=== PATIENT | male | born 1935 | race Caucasian/White ===

== ENCOUNTER 2018-07-17 20:48 | Emergency (ER) | payer MEDICARE, BC ==
[~2018-07-17] VITALS: Ht 177.8 cm; Wt 90.7 kg
--- NOTE | 2018-07-17 20:52 | ED Abdominal Pain ---
General Stated Complaint: ABD PAIN Source of Information: Patient, Caregiver (daughter), EMS History of Present Illness Date Seen by Provider: Jul 17, 2018 Time Seen by Provider: 20:48 Initial Comments 82-year-old male presenting from [facility]. He has had rapidly increasing abdominal distention. He has had decreased bowel movements and decreased urinary output in the last 24 hours. This has been a new progression for him. He also has been having some increased shortness of breath and breathing faster. This has coincided with his abdominal distention. He does have a history of having heart failure that this is been well controlled recently. He has no complaints himself but does have dementia. The correction hasn't tried giving him an enema but he had minimal to no results with this. He has had no vomiting but has had poor appetite. Allergies and Home Medications Allergies Coded Allergies: Penicillins (Verified Allergy, Unknown, 07/17/18) Uncoded Allergies: STEROIDS (Allergy, Unknown, 07/17/18) Patient Home Medication List Home Medication List Reviewed: Yes Review of Systems Review of Systems Constitutional: No chills, No fever; malaise EENTM: No Symptoms Reported Respiratory: Shortness of Air (due to distended belly) Cardiovascular: No Symptoms Reported Gastrointestinal: Abdomen Distended; Denies Abdominal Pain; Constipated, Poor Appetite; Denies Vomiting Genitourinary: Other (poor urine output) Musculoskeletal: no symptoms reported Skin: no symptoms reported Psychiatric/Neurological: Other (chronic dementia) Past Ldczrif-Sihguv-Zbeyyq Hx Past Med/Social Hx: Reviewed Nursing Past Med/Soc Hx Patient Social History Recent Foreign Travel: No Contact w/Someone Who Travel: No Physical Exam Vital Signs Vital Signs - First Documented 07/17/18 07/17/18 20:59 23:45 Temp 96.8 Pulse 80 Resp 14 B/P (MAP) 97/51 (66) Pulse Ox 96 O2 Delivery Room Air Capillary Refill : Height/Weight/BMI Height: '" Weight: lbs. oz. kg; BMI Method: General Appearance: WD/WN HEENT: pharynx normal Neck: non-tender, supple Respiratory: chest non-tender, lungs clear, normal breath sounds; No rales, No rhonchi, No stridor; other (tachypnea) Cardiovascular: normal peripheral pulses, regular rate, rhythm Gastrointestinal: non tender, soft, no pulsatile mass, abnormal bowel sounds ( tympanic bowel sounds), distended Rectal: deferred (family requested that pt not have rectal exam performed) Extremities: normal range of motion, non-tender Neurologic/Psychiatric: alert, other (chronic dementia. Oriented to self and place as ) Skin: warm/dry, pallor Progress/Results/Core Measures Results/Orders Lab Results Laboratory Tests Test 07/17/18 20:50 Range/Units White Blood Count 19.2 H 4.3-11.0 10^3/uL Red Blood Count 3.68 L 4.35-5.85 10^6/uL Hemoglobin 11.7 L 13.3-17.7 G/DL Hematocrit 35 L 40-54 % Mean Corpuscular Volume 96 80-99 FL Mean Corpuscular Hemoglobin 32 25-34 PG Mean Corpuscular Hemoglobin Concent 33 32-36 G/DL Red Cell Distribution Width 14.4 10.0-14.5 % Platelet Count 372 130-400 10^3/uL Mean Platelet Volume 9.8 7.4-10.4 FL Neutrophils (%) (Auto) 86 H 42-75 % Lymphocytes (%) (Auto) 4 L 12-44 % Monocytes (%) (Auto) 9 0-12 % Eosinophils (%) (Auto) 0 0-10 % Basophils (%) (Auto) 0 0-10 % Neutrophils # (Auto) 16.5 H 1.8-7.8 X 10^3 Lymphocytes # (Auto) 0.8 L 1.0-4.0 X 10^3 Monocytes # (Auto) 1.6 H 0.0-1.0 X 10^3 Eosinophils # (Auto) 0.0 0.0-0.3 10^3/uL Basophils # (Auto) 0.0 0.0-0.1 10^3/uL Neutrophils % (Manual) 85 % Lymphocytes % (Manual) 1 % Monocytes % (Manual) 8 % Eosinophils % (Manual) 0 % Basophils % (Manual) 0 % Band Neutrophils 6 % Poikilocytosis SLIGHT Sodium Level 132 L 135-145 MMOL/L Potassium Level 4.0 3.6-5.0 MMOL/L Chloride Level 95 L 98-107 MMOL/L Carbon Dioxide Level 18 L 21-32 MMOL/L Anion Gap 19 H 5-14 MMOL/L Blood Urea Nitrogen 74 H 7-18 MG/DL Creatinine 3.12 H 0.60-1.30 MG/DL Estimat Glomerular Filtration Rate 19 BUN/Creatinine Ratio 24 Glucose Level 127 H 70-105 MG/DL Calcium Level 8.3 L 8.5-10.1 MG/DL Corrected Calcium 9.3 8.5-10.1 MG/DL Total Bilirubin 0.6 0.1-1.0 MG/DL Aspartate Amino Transf (AST/SGOT) 116 H 5-34 U/L Alanine Aminotransferase (ALT/SGPT) 143 H 0-55 U/L Alkaline Phosphatase 63 40-136 U/L Total Protein 6.2 L 6.4-8.2 GM/DL Albumin 2.8 L 3.2-4.5 GM/DL Lipase 14 8-78 U/L My Orders Orders - CARLOS HERNANDEZ MD Comprehensive Metabolic Panel (07/17/18 20:53) Lipase (07/17/18 20:53) Ua Culture If Indicated (07/17/18 20:53) Ed Iv/Invasive Line Start (07/17/18 20:53) Cbc With Automated Diff (07/17/18 20:53) Ct Abdomen/Pelvis Wo (07/17/18 20:53) Manual Differential (07/17/18 20:50) Vital Signs/I&O 07/17/18 07/17/18 20:59 23:45 Temp 96.8 Pulse 80 78 Resp 14 B/P (MAP) 97/51 (66) 89/44 (59) Pulse Ox 96 96 O2 Delivery Room Air Room Air 07/18/18 00:00 Intake Total 200 ml Balance 200 ml Progress Progress Note #1: Progress Note check labs and CT scan of abdomen and pelvis to evaluate for possible bowel obstruction or pathology to cause his tympanic bowel sounds and distended abdomen. Progress Note #2: Progress Note His daughter confirmed the patient is a DNR and when reviewing the test results that show he is in acute renal failure with worsening WBC count elevation, urinary retention, fecal impaction with bowel obstruction, inguinal hernia and radiology report of possible ischemic bowel, it was felt that it would be better to make him comfortable instead of putting him through a lot of interventions. This was also discussed with his primary Dr. Plunkett. The patient will be transferred back to [facility]. His bladder will be drained here to help relieve some of the urinary retention. However family did not want his rectal impaction to be disimpacted. Plan to have him go on Hospice care in the morning or as soon as a service can be found to admit him to Hospice. Diagnostic Imaging Diagonstic Imaging: CT Plain Films/CT/US/NM/MRI: abdomen, pelvis Comments NAME: [facility] REC#: [id number] PT STATUS: REG ER : 1935 PHYSICIAN: CARLOS HERNANDEZ MD ADMIT DATE: 07/17/18/ER FS Signed Date of Exam:07/17/18 CT ABDOMEN/PELVIS WO PROCEDURE: CT abdomen and pelvis without contrast. TECHNIQUE: Multiple contiguous axial images were obtained through the abdomen and pelvis without the use of intravenous contrast. Auto Exposure Controls were utilized during the CT exam to meet ALARA standards for radiation dose reduction. INDICATION: Increasing abdominal distention. COMPARISON: None available. FINDINGS: Absence of intravenous contrast decreases sensitivity for detection of lymphadenopathy, focal lesions and vascular pathology. Multiple images are degraded by patient motion which diminishes detail, and interpretation was made in light of this technical confine. Mild bibasilar atelectasis and/or scarring. Trace left pleural fluid. There is moderate cardiomegaly. Partially visualized pacemaker leads. The liver, spleen and adrenal glands are normal. Calcified gallstones layer dependently in the gallbladder. There is no gallbladder wall edema or pericholecystic fluid. No intrahepatic or extrahepatic biliary ductal dilatation is demonstrated. There is mild atrophy of the pancreas. No pancreatic ductal dilatation is demonstrated. The kidneys are atrophic. Bilateral renal cysts are demonstrated. An exophytic relatively hyperdense lesion projects laterally off of the interpolar region in the left kidney. No hydronephrosis or renal calculus on either side. The visualized ureters are normal. There is a left inguinal hernia which contains portions of the distal descending and proximal sigmoid colon. Proximal to the level of the hernia, there is marked gaseous distention of the colon. Mildly dilated fluid-filled loops of small bowel are demonstrated throughout the abdomen. A moderate amount of retained partially digested food products is demonstrated in the stomach. There is question of pneumatosis coli demonstrated in the region of the cecum/ascending colon. There is a moderate stool ball, which distends the rectum to over 7 cm in transverse diameter. There is suggestion of mild rectal wall thickening, with mild surrounding inflammatory change. The appendix is normal. No pneumoperitoneum, abdominal free fluid or loculated collection. There is marked calcified atherosclerotic plaque of the abdominal aorta, without aneurysmal dilatation. No lymphadenopathy is demonstrated. There is severe distention of the bladder, without focal bladder abnormality demonstrated. The prostate gland is not enlarged. Severe multilevel degenerative changes of the spine are demonstrated. There is retrolisthesis of L2 on L3 and L4 on L5, with mild anterolisthesis of L5 on S1. Advanced degenerative changes are noted in both hip joints. No acute osseous abnormality is identified. IMPRESSION: 1. Left inguinal hernia containing portions of the distal descending and proximal sigmoid colon. There is marked gaseous distention of colon proximal to the inguinal hernia and mildly dilated loops of fluid-filled small bowel noted throughout the abdomen. Findings are concerning for obstruction. 2. There is suggestion of pneumatosis coli involving the cecum and ascending colon. This may be secondary to retained stool in this portion of the colon, however, ischemic colitis is not entirely excluded. No portal venous gas is demonstrated. 3. The rectum is markedly distended by a retained stool ball, with the rectum measuring over 7 cm in transverse diameter. Mild rectal wall thickening and surrounding inflammatory changes concerning for stercoral colitis. Disimpaction is recommended. 4. Severe distention of the bladder. No focal bladder abnormality or surrounding inflammatory change is demonstrated. The prostate gland does not appear enlarged. 5. Cholelithiasis, without evidence of acute cholecystitis. 6. Subcentimeter lesion projecting laterally off of the interpolar region of the left kidney. This may reflect a proteinaceous/hemorrhagic or peripherally calcified cyst, however, is indeterminate. Other cysts are demonstrated in both kidneys. This lesion can be further evaluated with renal protocol MRI on a nonemergent basis, as indicated. Alternatively renal ultrasound may be performed as an initial evaluation of this lesion. Report was called and faxed to the [facility] at 9:54 p.m., by julia. Dictated by: Dictated on workstation # [id number] Dict: [id number]/17/[id number] Trans: 07/17/182328 JULIA [id number] Interpreted by: JOSE LUIS VAZQUEZ DO Electronically signed by: JOSE LUIS VAZQUEZ DO 07/17/18 Reviewed: Reviewed by Me (and reviewed radiology report) Departure Impression Primary Impression: Bowel obstruction Qualified Codes: K56.690 - Other partial intestinal obstruction Additional Impressions: Left inguinal hernia Urinary retention Fecal impaction in rectum Acute renal failure Qualified Codes: N17.9 - Acute kidney failure, unspecified Disposition: 01 HOME, SELF-CARE Condition: Stable Departure-Patient Inst. Decision time for Depature: 23:17 Referrals: NO,LOCAL PHYSICIAN (PCP) Primary Care Physician Patient Instructions: Palliative Care Add. Discharge Instructions: Work with Dr. Plunkett for Palliative and Hospice care CARLOS HERNANDEZ MD Jul 17, 2018 20:51
[2018-07-17 21:03] LABS: HEMATOCRIT 35 % (40-54); HEMOGLOBIN 11.7 G/DL (13.3-17.7); MEAN CORPUSCULAR VOLUME 96 FL (80-99); WHITE BLOOD COUNT 19.2 10^3/uL (4.3-11.0)
[2018-07-17 21:04] LABS: BASOPHILS % (AUTO) 0 % (0-10); EOSINOPHILS % (AUTO) 0 % (0-10); LYMPHOCYTES # (AUTO) 0.8 X 10^3 (1.0-4.0); LYMPHOCYTES % (AUTO) 4 % (12-44); MEAN CORPUSCULAR HEMOGLOBIN 32 PG (25-34); MEAN CORPUSCULAR HGB CONC 33 G/DL (32-36); MEAN PLATELET VOLUME 9.8 FL (7.4-10.4); MONOCYTES # (AUTO) 1.6 X 10^3 (0.0-1.0); MONOCYTES % (AUTO) 9 % (0-12); NEUTROPHILS # (AUTO) 16.5 X 10^3 (1.8-7.8); NEUTROPHILS % (AUTO) 86 % (42-75); PLATELET COUNT 372 10^3/uL (130-400); RED CELL DISTRIBUTION WIDTH 14.4 % (10.0-14.5)
[2018-07-17 21:19] LABS: BAND NEUTROPHILS 6 %; BASOPHILS % (MANUAL) 0 %; EOSINOPHILS % (MANUAL) 0 %; LYMPHOCYTES % (MANUAL) 1 %; MONOCYTES % (MANUAL) 8 %; NEUTROPHILS % (MANUAL) 85 %; POIKILOCYTOSIS SLIGHT
[2018-07-17 21:26] LABS: ALBUMIN 2.8 GM/DL (3.2-4.5); BILIRUBIN,TOTAL 0.6 MG/DL (0.1-1.0); CALCIUM 8.3 MG/DL (8.5-10.1); CREATININE SERUM 3.12 MG/DL (0.60-1.30); TOTAL PROTEIN 6.2 GM/DL (6.4-8.2)
--- NOTE | 2018-07-17 22:13 | Diagnostic Imaging Report ---
PROCEDURE: CT abdomen and pelvis without contrast. TECHNIQUE: Multiple contiguous axial images were obtained through the abdomen and pelvis without the use of intravenous contrast. Auto Exposure Controls were utilized during the CT exam to meet ALARA standards for radiation dose reduction. INDICATION: Increasing abdominal distention. COMPARISON: None available. FINDINGS: Absence of intravenous contrast decreases sensitivity for detection of lymphadenopathy, focal lesions and vascular pathology. Multiple images are degraded by patient motion which diminishes detail, and interpretation was made in light of this technical confine. Mild bibasilar atelectasis and/or scarring. Trace left pleural fluid. There is moderate cardiomegaly. Partially visualized pacemaker leads. The liver, spleen and adrenal glands are normal. Calcified gallstones layer dependently in the gallbladder. There is no gallbladder wall edema or pericholecystic fluid. No intrahepatic or extrahepatic biliary ductal dilatation is demonstrated. There is mild atrophy of the pancreas. No pancreatic ductal dilatation is demonstrated. The kidneys are atrophic. Bilateral renal cysts are demonstrated. An exophytic relatively hyperdense lesion projects laterally off of the interpolar region in the left kidney. No hydronephrosis or renal calculus on either side. The visualized ureters are normal. There is a left inguinal hernia which contains portions of the distal descending and proximal sigmoid colon. Proximal to the level of the hernia, there is marked gaseous distention of the colon. Mildly dilated fluid-filled loops of small bowel are demonstrated throughout the abdomen. A moderate amount of retained partially digested food products is demonstrated in the stomach. There is question of pneumatosis coli demonstrated in the region of the cecum/ascending colon. There is a moderate stool ball, which distends the rectum to over 7 cm in transverse diameter. There is suggestion of mild rectal wall thickening, with mild surrounding inflammatory change. The appendix is normal. No pneumoperitoneum, abdominal free fluid or loculated collection. There is marked calcified atherosclerotic plaque of the abdominal aorta, without aneurysmal dilatation. No lymphadenopathy is demonstrated. There is severe distention of the bladder, without focal bladder abnormality demonstrated. The prostate gland is not enlarged. Severe multilevel degenerative changes of the spine are demonstrated. There is retrolisthesis of L2 on L3 and L4 on L5, with mild anterolisthesis of L5 on S1. Advanced degenerative changes are noted in both hip joints. No acute osseous abnormality is identified. IMPRESSION: 1. Left inguinal hernia containing portions of the distal descending and proximal sigmoid colon. There is marked gaseous distention of colon proximal to the inguinal hernia and mildly dilated loops of fluid-filled small bowel noted throughout the abdomen. Findings are concerning for obstruction. 2. There is suggestion of pneumatosis coli involving the cecum and ascending colon. This may be secondary to retained stool in this portion of the colon, however, ischemic colitis is not entirely excluded. No portal venous gas is demonstrated. 3. The rectum is markedly distended by a retained stool ball, with the rectum measuring over 7 cm in transverse diameter. Mild rectal wall thickening and surrounding inflammatory changes concerning for stercoral colitis. Disimpaction is recommended. 4. Severe distention of the bladder. No focal bladder abnormality or surrounding inflammatory change is demonstrated. The prostate gland does not appear enlarged. 5. Cholelithiasis, without evidence of acute cholecystitis. 6. Subcentimeter lesion projecting laterally off of the interpolar region of the left kidney. This may reflect a proteinaceous/hemorrhagic or peripherally calcified cyst, however, is indeterminate. Other cysts are demonstrated in both kidneys. This lesion can be further evaluated with renal protocol MRI on a nonemergent basis, as indicated. Alternatively renal ultrasound may be performed as an initial evaluation of this lesion. Report was called and faxed to the [facility] at 9:54 p.m., by aura. Dictated by: Dictated on workstation # [id number]
[2018-07-17 23:45] VITALS: BP 89/44
== END 2018-07-17 23:45 | disposition home or self-care (01) ==
LOC: EDUNIT# 20:48 → ER FS 20:50
DX: K56.609 Unspecified intestinal obstruction, unspecified as to partial versus complete obstruction (principal); K40.90 Unilateral inguinal hernia, without obstruction or gangrene, not specified as recurrent; R33.9 Retention of urine, unspecified; K56.41 Fecal impaction; N17.9 Acute kidney failure, unspecified; I50.9 Heart failure, unspecified; F03.90 Unspecified dementia, unspecified severity, without behavioral disturbance, psychotic disturbance, mood disturbance, and anxiety; Z88.0 Allergy status to penicillin; Z88.8 Allergy status to other drugs, medicaments and biological substances
CPT/HCPCS: 51701; 74176; 80053; 83690; 85007